=== PATIENT | female | born 1965 | race African-American/Black ===

== ENCOUNTER 2020-07-03 14:15 | Emergency (ER) | payer OTHER ==
[~2020-07-03] VITALS: Ht 147.3 cm; Wt 79.0 kg
[2020-07-03 17:37] LABS: BASOPHILS % 0.3 % (0.0-2.0); HEMATOCRIT. 41.6 % (36.0-48.0); HEMOGLOBIN. 14.4 g/dL (12.0-16.0); LYMPHOCYTES % 32.5 % (20.0-50.0); MEAN CORPUSCULAR HEMOGLOBIN 31.3 pg (28.0-32.0); MEAN CORPUSCULAR VOLUME 90.4 fL (81.0-99.0); MEAN PLATELET VOLUME 8.2 fl (7.4-10.4); MONOCYTES % 3.9 % (2.0-8.0); NEUTROPHILS % 61.3 % (40.0-76.0); PLATELET 317 x1000/uL (130-400); RED CELL DISTRIBUTION WIDTH 12.9 % (11.6-14.6)
[2020-07-03 17:40] LABS: CLARITY URINE CLOUDY (CLEAR); COLOR URINE YELLOW (YELLOW); KETONES URINE NEGATIVE (NEGATIVE); LEUKOCYTE ESTERASE URINE 2+ (NEGATIVE); NITRITE URINE NEGATIVE (NEGATIVE); OCCULT BLOOD URINE NEGATIVE (NEGATIVE); PROTEIN URINE NEGATIVE (NEGATIVE); SPECIFIC GRAVITY URINE 1.021 (1.005-1.030); UROBILINOGEN URINE 0.2 E.U./dL (0.2-1.0)
[2020-07-03 17:41] LABS: CHLORIDE 104 mEq/L (98-107)
[2020-07-03 17:47] LABS: ETHANOL BLOOD < 10 mg/dL; PROTHROMBIN TIME 10.8 sec (9.6-11.0)
[2020-07-03 17:50] LABS: LDL CHOLESTEROL 194 mg/dL (5-100)
[2020-07-03 18:33] VITALS: BP 139/81
[2020-07-04 07:45] LABS: *AMPHETAMINES SCREEN URINE NEGATIVE (NEGATIVE); *BARBITURATES SCREEN URINE NEGATIVE (NEGATIVE); *BENZODIAZEPINES SCREEN URINE NEGATIVE (NEGATIVE); *COCAINE SCREEN URINE NEGATIVE (NEGATIVE)
[2020-07-04 07:46] LABS: CANNABINOID URINE SCREEN NEGATIVE (NEGATIVE); PHENCYCLIDINE URINE SCREEN NEGATIVE (NEGATIVE)
[2020-07-04 07:47] LABS: METHADONE URINE SCREEN NEGATIVE (NEGATIVE)
[2020-07-04 07:48] LABS: OPIATES URINE SCREEN NEGATIVE (NEGATIVE)
== END 2020-07-03 18:36 | disposition home or self-care (01) ==
LOC: ER 14:15
DX: G51.0 Bell's palsy (principal); E11.9 Type 2 diabetes mellitus without complications; I49.9 Cardiac arrhythmia, unspecified
CPT/HCPCS: 36415; 70486; 71045; 80053; 80305; 80320; 81003; 83721; 84484; 85025; 93005; 99285; G0480